=== PATIENT | female | born 1965 | race Caucasian/White ===

== ENCOUNTER → 2017-03-02 | Outpatient (CLI) | payer OTHER ==
[~2017-03-02] VITALS: Ht 165.1 cm; Wt 83.0 kg
[~2017-03-02] MED LIST: ZYRTEC10 M3 PO
== END | disposition home or self-care (01) ==
LOC: AMB 11:30
PROC: 0DBL8ZX Excision of Transverse Colon, Via Natural or Artificial Opening Endoscopic, Diagnostic (ICD-10-PCS; principal; 2017-03-02)
DX: D12.3 Benign neoplasm of transverse colon (principal); Q43.8 Other specified congenital malformations of intestine; K64.8 Other hemorrhoids; R10.31 Right lower quadrant pain; R14.0 Abdominal distension (gaseous); K92.1 Melena
CPT/HCPCS: 88305; J2250; J3010